=== PATIENT | female | born 1970 | race Hispanic/Latino ===

== ENCOUNTER 2016-07-25 08:38 | Day surgery (SDC) | payer OTHER ==
[~2016-07-25 08:38] MED LIST: ALBU1.25 INHALATION; ALBU18HF INH; BECL8.7A6 IH; CITA20TA11 PO; GABA-502 PO; MELO-253 PO; MONT10TA23 PO
[2016-07-25] MEDS ORDERED: Dexamethasone 10 mg/mL Inj ONE (08:39)
[2016-07-25] MEDS ORDERED: Iohexol 240 mg/mL 10 mL Inj ONE (08:39)
[2016-07-25] MEDS ORDERED: Lidocaine PF 2% 10 mL Inj ONE (08:39)
[2016-07-25 08:54] VITALS: BP 129/83; PULSE 71; RESP 18
[2016-07-25] MEDS ORDERED: DULO40CA2 PO (09:04)
[2016-07-25] MEDS ORDERED: LORA5SOL82 PO (09:04)
--- NOTE | 2016-07-25 16:33 | PCM.PROC ---
Procedure Note Date of Service: Jul 25, 2016 Pre Procedure Diagnosis: PROCEDURE: RIGHT L5 transforaminal epidural steroid injection PRE-PROCEDURE DIAGNOSIS: Lumbar radiculopathy POST-PROCEDURE DIAGNOSIS: same INDICATION: 45-year-old patient referred for bilateral L5 transforaminal epidural steroid injection. PERFORMED BY: Lionel Alexander MD DESCRIPTION OF PROCEDURE: Patient was met in the holding area. Consent was signed, site was confirmed and all questions were answered. They were the taken to the procedure suite and placed prone on the procedure table.The appropriate time out in the OR was performed confirming the patient's name, date of , planned procedure, and presence of the appropriate instrumentation. They were prepped and draped in sterile fashion. The image intensifier was manipulated to minimize double shadows of the vertebral endplates above the neural foramen to be addressed. The image intensifier was rotated 30 ipsilaterally for Te dog appearance. A 25- gauge 5-inch Quincke needle was advanced towards the target area using tunnel view. The image intensifier was then changed to the lateral view and the needle was advanced towards the "safe triangle". Proper positioning was confirmed in the AP view so the tip of the needle ended at the most inferolateral aspect of the superior pedicle. Proper positioning was confirmed with injection of radiopaque contrast dye which showed delineation of the nerve root as well as epidural spread. The contrast was then injected under live fluoroscopy to rule out inadvertent vascular uptake. 1 cc of 2% Lidocaine was injected slowly. After 1 minute the patient was found to be able to move the legs appropriately with no signs or symptoms of vascular uptake of the lidocaine 10 mg dexamethasone was injected followed by another 1/2 cc of 2% Lidocaine . ANESTHESIA: Local. EBL: None. No Blood Products Used COMPLICATIONS: None SPECIMENS: None POST-PROCEDURE DISPOSITION: Patient was returned to the holding area in stable condition. They were discharged home when all discharge criteria were met. Evaluation/Physical Exam before discharge revealed: Pre-procedure pain: 5/10. Post-procedure pain: 1/10 (patient noted an increase in her back pain after the injection, most likely from lying on her stomach) DISCHARGE MEDICATIONS: (none, unless otherwise noted) FOLLOW UP: Keep appointment for LEFT L5 transforaminal epidural steroid injection Lionel Alexander MD .ED: Y: Patient given care and follow up instructions Lionel Alexander MD Jul 25, 2016 16:33
[2016-08-07] MEDS ORDERED: CITA20TA11 PO (14:49)
== END 2016-07-25 23:59 | disposition home or self-care (01) ==
LOC: END 08:38
PROVIDERS: ATTEND Anesthesiology Pain Medicine
DX: M54.16 Radiculopathy, lumbar region (principal); R73.03 Prediabetes; J30.2 Other seasonal allergic rhinitis; F41.9 Anxiety disorder, unspecified; F32.9 Major depressive disorder, single episode, unspecified
CPT/HCPCS: 64483; J1100

== ENCOUNTER 2016-07-25 19:46 | Emergency (ER) | payer OTHER ==
[~2016-07-25] VITALS: Ht 152.4 cm; Wt 90.9 kg
[~2016-07-25 19:46] MED LIST changes: +DULO40CA2 PO; +LORA5SOL82 PO
[2016-07-25 19:50] VITALS: BP 121/79; PULSE 101; RESP 18; O2SAT 97
[2016-07-25] MEDS ORDERED: 0.9% Sodium Chloride 1,000 ML IV ONE (20:08)
--- NOTE | 2016-07-25 20:12 | ED.REPORT ---
HPI-General Illness Date of Service Jul 25, 2016 ED Provider: Dr. Aaron Arellano MD A 45 year old female with a history of asthma presents to the ED complaining of weakness that began just prior to arrival. Patient was sent from Urgent Care for elevated blood glucose levels, she arrived with a glucose of 335. She also reports experiencing diaphoresis, chills, shaking, headache, mild abdominal pain and inguinal pain. Patient received a right L5 epidural steroid injection this afternoon and is currently experiencing back pain and lower extremity pain. She denies any dysuria. Nursing Notes Chief Complaint: General Complaint Nursing Notes Reviewed: Yes Allergies: Coded Allergies: hydrocodone (Verified Allergy, Severe, FACIAL SWELLING, 09/10/15) oxycodone (Verified Allergy, Severe, LOWERED BLOOD PRESSURE/NAUSEA VOMITING, 09/20/15) amoxicillin (Verified Allergy, Unknown, UNKNOWN, 09/10/15) clavulanic acid (Verified Allergy, Unknown, UNKNOWN, 09/10/15) magnesium (Verified Allergy, Unknown, 07/24/16) naproxen (Verified Adverse Reaction, Severe, DIZZINESS, 09/10/15) omeprazole (Verified Adverse Reaction, Severe, HEADACHE, 09/10/15) Scheduled Duloxetine HCl (Duloxetine HCl) 40 Mg Capsule.dr 40 MG PO DAILY Gabapentin (Gabapentin) 300 Mg Capsule 300 MG PO TID Meloxicam (Meloxicam) 15 Mg Tablet 15 MG PO DAILY Montelukast (Montelukast) 10 Mg Tablet 10 MG PO HS Scheduled PRN Albuterol Neb Soln (Albuterol Neb Soln) 1.25 Mg/3 Ml Vial.neb 1.25 MG INHALATION Q4H PRN PRN For Wheezing Albuterol Sulfate (Ventolin HFA Inhaler) 200 Puff/18 Gm Inhaler 1 PUFF INH Q4 PRN PRN For Wheezing Loratadine (Loratadine) 5 Mg/5 Ml (5 Ml) Solution 5 MG PO PRN prn General Time Seen by MD: 20:11 Chief Complaint Weakness Hx Obtained From: Patient Arrived By: Walk-in Sudden in Onset?: No Onset Occurred: Just prior to arrival Symptom Duration: Since onset Location: : Head Quality: Aching Radiation: : Does not radiate Severity: Current: Mild Severity: Maximum: Mild Associated with: Reports: Abdominal pain, Diaphoresis, Weakness Additional Notes: Shaking Chills Inguinal Pain Back Pain Pertinent Negative: Pt denies other symptoms Recent Healthcare: No recent doctor visit, Recent hospitalization Past Medical History Past Medical History Notes: PCP: Clarice Ramirez MD Past Medical History Reports: Asthma, Denies: Diabetes mellitus Past Surgical History 1. Right L5 transforaminal epidural steroid injection 2. Right shoulder arthroscopy with rotator cuff repair. Smoking History Never Smoker Social History Other Social History: Good social support, Local resident Ambulatory Status Independent Review of Systems Full Review of Systems Constitutional: Reports: Chills, Denies: Fever Respiratory: Denies: Shortness of breath Cardiovascular: Denies: Chest pain GI: Reports: Abdominal pain, Denies: Nausea, Vomiting Female: Denies: Dysuria Musculoskeletal: Reports: Back pain, Extremity pain (Lower extremity pain) Neurologic: Reports: Headache, Shaking, Weakness, Denies: Change LOC Complete sys rev & neg: except as marked. Physical Exam Vital Signs Vital Signs Date Time Temp Pulse Resp B/P Pulse Ox O2 Delivery O2 Flow Rate FiO2 07/25/16 23:38 36.6 80 16 112/74 98 Room Air 07/25/16 21:28 82 16 118/75 97 Room Air 07/25/16 19:50 36.1 101 18 121/79 97 Room Air Initial VS: Reviewed Neck: Supple, Non-tender, Full range of motion Skin: Warm, Dry, No cyanosis Neurologic: Alert, Oriented, Nonfocal Psychiatric: Mood/affect normal, Behavior normal, Normal thought content General/Constitutional: Awake, Alert Head / Eyes: Atraumatic, Normocephalic Respiratory / Chest: Atraumatic, Breath sounds NL, Breath sounds = bilat Cardiovascular: Heart rate NL, Regular rhythm, Heart sounds NL, No gallop, No murmurs, No rubs Abdomen: Atraumatic, Soft, Non-tender Back: Atraumatic, Inspection NL BACK: Injection site normal Upper Extremities Upper Extremity / MS: Atraumatic, Neurologic intact, Vascular intact Lower Extremity / Pelvis / MS: Atraumatic, Neurologic intact, Vascular intact Interpretation & Diagnostics Lab Results Interpretation Result Diagram: 07/25/16201407/25/16 2015 Test 07/25/16 20:15 07/25/16 20:36 White Blood Count 9.2th/mm3 (3.8-10.1) Red Blood Count 4.67mil/mm3 (3.90-5.20) Hemoglobin 14.6g/dL (12.0-15.6) Hematocrit 41.2% (35.0-46.0) Mean Corpuscular Volume 88.2fL (81-100) Mean Corpuscular Hemoglobin 31.3pg (27.0-35.0) Mean Corpuscular Hemoglobin Concent 35.4% (32.0-37.0) Red Cell Distribution Width 12.6% (12.3-15.4) Platelet Count 309bil/L (150-400) Neutrophils (%) (Auto) 87.7% (40-74) Lymphocytes (%) (Auto) 9.5% (14-46) Monocytes (%) (Auto) 2.5% (4-12) Eosinophils (%) (Auto) 0% (0-5) Basophils (%) (Auto) 0.1% (0-3) Sodium Level 137mEq/L (134-144) Potassium Level 3.6mEq/L (3.5-5.2) Chloride Level 101mEq/L (97-108) Carbon Dioxide Level 20mmol/L (18-29) Blood Urea Nitrogen 11mg/dL (6-24) Creatinine 0.71mg/dL (0.57-1.00) Estimat Glomerular Filtration Rate 129mL/min (>59) Glucose Level 163mg/dL (60-99) Calcium Level 9.3mg/dL (8.5-10.1) Magnesium Level 1.9mg/dL (1.6-2.6) Total Bilirubin 0.2mg/dL (0.0-1.2) Aspartate Amino Transf (AST/SGOT) 22U/L (0-50) Alanine Aminotransferase (ALT/SGPT) 21U/L (0-32) Alkaline Phosphatase 84U/L (25-150) Total Protein 7.9g/dL (6.4-8.4) Albumin 4.3g/dL (3.4-5.0) Hold Rico Top Tube Received (Received) Urine Color Straw (YELLOW) Urine Appearance Clear (CLEAR,HAZY) Urine pH 6.0 (5.0-8.0) Urine Specific [place] 1.002 (1.003-1.035) Urine Protein Negativemg/dL (NEG,TRACE) Urine Glucose (UA) Negativemg/dL (NEGATIVE) Urine Ketones Negativemg/dL (NEGATIVE) Urine Occult Blood Negative (NEGATIVE) Urine Nitrite Negative (NEGATIVE) Urine Bilirubin Negative (NEGATIVE) Urine Urobilinogen Normalmg/dL (NORMAL) Urine Leukocyte Esterase Negative (NEGATIVE) Urine RBC 0-2/hpf (0-2) Urine WBC 0-5/hpf (0-5) Urine Epithelial Cells Few/hpf (NONE-MOD) Urine Crystals None seen (NONE SEEN) Urine Bacteria None/hpf (NONE-FEW) Urine Hyaline Casts None/lpf (NONE) Urine Granular Casts None seen (NONE SEEN) Urine Waxy Casts None seen (NONE SEEN) Urine Red Blood Cell Casts None seen (NONE SEEN) Urine White Blood Cell Casts None seen (NONE SEEN) Urine Mucus None seen (None Seen) Urine Trichomonas None seen (NONE SEEN) Urine Yeast None (NONE SEEN) Urine Culture Reflexed Not indicated Lab Results Interpretation: Urine Dip SP [place] 1.005 pH 6 Negative: - Leukocytes - Nitrites - Protein - Glucose - Ketones - Urobilinogen - Bilirubin Trace blood Re-Eval/Medical Decision Time of Eval: 23:20 Patient Status: Condition improved Re-Evaluation/Progress Note: Patient is rechecked. She is informed of her lab results and diagnosis. All questions are addressed. She understands and agrees with the treatment plan to discharge. Counseled Regarding: Diagnosis, Lab results, Need for follow-up, When/why to return to ED Discharge & Departure Primary Impression: Hyperglycemia Disposition: Home Discharge Condition All VS Reviewed: Yes Condition: Stable Additional Instructions: Emergency department today we evaluated elevated blood sugar greater than 300 at home. This occurred in the context of a recent epidural steroid injection. There is no fever vital signs are normal exam and labs are otherwise reassuring. Glucose is down into a reasonable range less than 200. We recommend resting tonight continuing previous home medications. Follow-up with Dr. Rogel as planned and discussed this reaction with him prior to your next epidural steroid. Return emergency Department for fevers chest pain or difficulty breathing. Referrals: Clarice Ramirez DO (PCP) Lionel Alexander MD Scribe Attestation Portions of this note were transcribed by Simón Cook. I, Dr. Arellano personally performed the history, physical exam and medical decision-making; I reviewed and confirmed the accuracy of the information in the transcribed note. Signed by: Jesse Cardenas, 07/25/16 [id number]. copies to: Clarice Ramirez Donald L MD Jul 25, 2016 20:12 SIMÓN COOK Jul 25, 2016 22:19
[2016-07-25 20:38] LABS: BASOPHILS % (AUTO) 0.1 % (0-3); EOSINOPHILS % (AUTO) 0 % (0-5); MONOCYTES % (AUTO) 2.5 % (4-12); Mean Corpuscular Hemoglobin 31.3 pg (27.0-35.0); Mean Corpuscular Volume 88.2 fL (81-100); NEUTROPHILS % (AUTO) 87.7 % (40-74); Platelet Count 309 bil/L (150-400)
[2016-07-25 21:02] LABS: Magnesium 1.9 mg/dL (1.6-2.6)
[2016-07-25 21:28] VITALS: BP 118/75; PULSE 82; RESP 16; O2SAT 97
[2016-07-25 22:44] LABS: APPEARANCE,URINE CLEAR (CLEAR,HAZY); COLOR,URINE STRAW (YELLOW); OCCULT BLOOD,URINE NEGATIVE (NEGATIVE); UROBILINOGEN,URINE NORMAL (NORMAL)
[2016-07-25 23:38] VITALS: BP 112/74; PULSE 80; RESP 16; O2SAT 98
[2016-08-07] MEDS ORDERED: CITA20TA11 PO (14:49)
== END 2016-07-25 23:40 | disposition home or self-care (01) ==
LOC: SED 19:46
DX: R73.9 Hyperglycemia, unspecified (principal); R61 Generalized hyperhidrosis; R68.83 Chills (without fever); R25.1 Tremor, unspecified; R10.30 Lower abdominal pain, unspecified; R51 Headache; J45.909 Unspecified asthma, uncomplicated; Z88.1 Allergy status to other antibiotic agents; Z88.5 Allergy status to narcotic agent; Z88.8 Allergy status to other drugs, medicaments and biological substances
CPT/HCPCS: 36415; 80053; 81000; 81025; 82948; 83735; 85025; 96360; 96361; 99284; J7030

== ENCOUNTER 2016-08-08 08:45 | Day surgery (SDC) | payer OTHER ==
[~2016-08-08] VITALS: Ht 154.9 cm; Wt 92.1 kg
[~2016-08-08 08:45] MED LIST changes: -ALBU1.25 INHALATION; -BECL8.7A6 IH; -DULO40CA2 PO; -LORA5SOL82 PO
[2016-08-08] MEDS ORDERED: Lidocaine PF 2% 10 mL Inj ONE (08:46)
[2016-08-08] MEDS ORDERED: Iohexol 240 mg/mL 10 mL Inj ONE (08:46)
[2016-08-08] MEDS ORDERED: Dexamethasone 10 mg/mL Inj ONE (08:46)
[2016-08-08 09:17] VITALS: BP 117/77; PULSE 84; RESP 14; O2SAT 98
[2016-08-08 10:11] VITALS: BP 137/87; PULSE 68; O2SAT 98
--- NOTE | 2016-08-08 16:31 | PCM.PROC ---
Procedure Note Date of Service: Aug 08, 2016 Pre Procedure Diagnosis: PROCEDURE: LEFT L5 transforaminal epidural steroid injection PRE-PROCEDURE DIAGNOSIS: Lumbar radiculopathy POST-PROCEDURE DIAGNOSIS: same INDICATION: 45-year-old female referred for LEFT L5 transforaminal epidural steroid injection for lumbar radiculopathy PERFORMED BY: Lionel Alexander MD DESCRIPTION OF PROCEDURE: Patient was met in the holding area. Consent was signed, site was confirmed and all questions were answered. was taken to the procedure suite and placed prone on the procedure table. The image intensifier was manipulated to minimize double shadows of the vertebral endplates above the neural foramen to be addressed. The image intensifier was rotated 30 ipsilaterally for Te dog appearance. A 25- gauge 5-inch Quincke needle was advanced towards the target area using tunnel view. The image intensifier was then changed to the lateral view and the needle was advanced towards the "safe triangle". Proper positioning was confirmed in the AP view so the tip of the needle ended at the most inferolateral aspect of the superior pedicle. Proper positioning was confirmed with injection of radiopaque contrast dye which showed delineation of the nerve root as well as epidural spread. The contrast was then injected under live fluoroscopy to rule out inadvertent vascular uptake. 1 cc of 2% Lidocaine was injected slowly. After 1 minute the patient was found to be able to move the legs appropriatelywith no signs or symptoms of vascular uptake of the lidocaine 10 mg dexamethasone was injected followed by another 1/2 cc of 2% Lidocaine . ANESTHESIA: Local EBL: None. No Blood Products Used COMPLICATIONS: None SPECIMENS: None POST-PROCEDURE DISPOSITION: Patient was returned to the holding area in stable condition. They were discharged home when all discharge criteria were met. Evaluation/Physical Exam before discharge revealed: 10/29-07/01 DISCHARGE MEDICATIONS: (none, unless otherwise noted) FOLLOW UP: Followup with Zhen Aaron to-4 weeks Discussed controlling blood sugars Lionel Alexander MD .ED: Y: Patient given care and follow up instructions Lionel Alexander MD Aug 08, 2016 16:31
== END 2016-08-08 23:59 | disposition home or self-care (01) ==
LOC: END 08:45
PROVIDERS: ATTEND Anesthesiology Pain Medicine
DX: M54.16 Radiculopathy, lumbar region (principal)
CPT/HCPCS: 64483; J1100

== ENCOUNTER 2016-11-16 01:12 | Emergency (ER) | payer OTHER ==
[~2016-11-16] VITALS: Ht 154.9 cm; Wt 90.9 kg
[~2016-11-16 01:12] MED LIST changes: -CITA20TA11 PO; -MONT10TA23 PO
[2016-11-16 01:16] VITALS: BP 127/90; PULSE 67; RESP 16; O2SAT 99
--- NOTE | 2016-11-16 02:57 | ED.REPORT ---
HPI-NVD Date of Service November 16, 2016 ED Provider: Maikol Jack MD Pt is a 46 year old female with a hx of fibromyalgia presenting to the ED complaining of diarrhea onset 1 month ago. Associated symptoms include malaise, fatigue, palpitations, shaking, weakness, diaphoresis, and chills. Pt reports that she is lactose intolerant so she attributed the diarrhea to this, but then later thought it may be due to her medications. Nursing Notes Stated Complaint: MAYBE BLOOD IN STOOL Chief Complaint: General Complaint Nursing Notes Reviewed: Yes Allergies: Coded Allergies: hydrocodone (Verified Allergy, Severe, FACIAL SWELLING, 08/08/16) oxycodone (Verified Allergy, Severe, LOWERED BLOOD PRESSURE/NAUSEA VOMITING, 08/08/16) amoxicillin (Verified Allergy, Unknown, UNKNOWN, 08/08/16) clavulanic acid (Verified Allergy, Unknown, UNKNOWN, 08/08/16) magnesium (Verified Allergy, Unknown, 08/08/16) naproxen (Verified Adverse Reaction, Severe, DIZZINESS, 08/08/16) omeprazole (Verified Adverse Reaction, Severe, HEADACHE, 08/08/16) Scheduled Gabapentin (Gabapentin) 300 Mg Capsule 300 MG PO TID Meloxicam (Meloxicam) 15 Mg Tablet 15 MG PO DAILY Scheduled PRN Albuterol Sulfate (Ventolin HFA Inhaler) 200 Puff/18 Gm Inhaler 1 PUFF INH Q4 PRN PRN For Wheezing General Time Seen by MD: 02:55 Chief Complaint Diarrhea Hx Obtained From: Patient Arrived By: Walk-in Onset Occurred: More than a week ago... (1 month) Symptom Duration: Since onset Diarrhea: Diarrhea > 10 episodes Severity: Current: No pain currently Severity: Maximum: No pain Associated with: Reports: Shaking chills Recent Healthcare: No recent doctor visit, No recent hospitalization Similar Sx Previous: No Past Medical History Past Medical History Notes: PCP: Clarice Ramirez MD Past Medical History Fibromyalgia Migraines Reports: Asthma Past Surgical History 1. Right L5 transforaminal epidural steroid injection 2. Right shoulder arthroscopy with rotator cuff repair. Family History Mother has hx of low blood sugar Smoking History Never Smoker Social History Other Social History: Good social support, Local resident Ambulatory Status Independent Review of Systems Constitutional: Reports: Chills, Fatigue, Malaise GI: Reports: Diarrhea Skin: Reports Diaphoresis Neurologic: Reports: Shaking Complete sys rev & neg: except as marked. Cardiovascular: Reports: Palpitations Physical Exam Initial Vital Signs Vital Signs (First) Date Time Temp Pulse Resp B/P Pulse Ox O2 Delivery O2 Flow Rate FiO2 11/16/16 01:16 36.6 67 16 127/90 99 Room Air Initial VS: Reviewed, Vital signs normal Head / Eyes: Atraumatic, Normocephalic, PERRL ENT: Mucous membranes moist, Conjunctiva normal, No scleral icterus Neck: Supple, Non-tender, Full range of motion Respiratory: No respiratory distress Extremities: Vascular intact, Neuro intact, No swelling, No tenderness Skin: Warm, Dry, No cyanosis Neurologic: Alert, Oriented, Nonfocal Psychiatric: Mood/affect normal, Behavior normal, Normal thought content General/Constitutional: Awake, Alert, Well appearing Abdomen: Soft, Non-tender, No guarding, No rebound, BS normoactive, No distention Interpretation & Diagnostics Interpretation & Diagnostics: Guaiac negative Lab Results Interpretation Result Diagram: 11/16/16 0325 11/16/16 0325 Test 11/16/16 03:25 11/16/16 03:30 11/16/16 03:50 White Blood Count 17.0th/mm3 (3.8-10.1) Red Blood Count 4.38mil/mm3 (3.90-5.20) Hemoglobin 13.7g/dL (12.0-15.6) Hematocrit 40.0% (35.0-46.0) Mean Corpuscular Volume 91.3fL (81-100) Mean Corpuscular Hemoglobin 31.3pg (27.0-35.0) Mean Corpuscular Hemoglobin Concent 34.3% (32.0-37.0) Red Cell Distribution Width 12.9% (12.3-15.4) Platelet Count 342bil/L (150-400) Neutrophils (%) (Auto) 68.0% (40-74) Lymphocytes (%) (Auto) 21.4% (14-46) Monocytes (%) (Auto) 9.4% (4-12) Eosinophils (%) (Auto) 0.6% (0-5) Basophils (%) (Auto) 0.2% (0-3) Prothrombin Time 10.0sec (8.1-12.5) Prothromb Time International Ratio 0.94ratio Sodium Level 139mEq/L (134-144) Potassium Level 4.0mEq/L (3.5-5.2) Chloride Level 102mEq/L (97-108) Carbon Dioxide Level 24mmol/L (18-29) Blood Urea Nitrogen 16mg/dL (6-24) Creatinine 0.73mg/dL (0.57-1.00) Estimat Glomerular Filtration Rate 124mL/min (>59) Glucose Level 125mg/dL (60-99) Calcium Level 9.3mg/dL (8.5-10.1) Magnesium Level 2.0mg/dL (1.6-2.6) Total Bilirubin 0.2mg/dL (0.0-1.2) Aspartate Amino Transf (AST/SGOT) 16U/L (0-50) Alanine Aminotransferase (ALT/SGPT) 19U/L (0-32) Alkaline Phosphatase 107U/L (25-150) Total Protein 7.5g/dL (6.4-8.4) Albumin 4.0g/dL (3.4-5.0) Hold Rico Top Tube Received (Received) Hold Urine Received (Received) Lab Results Interpretation: Elevated white blood count of uncertain etiology Re-Eval/Medical Decision Med Decision/Clinical Course 46-year-old female with multiple complaints are very positive review of systems. Her chief complaint was dark stool that she assumed was blood, but her stool guaiac is negative. She is already in the middle of a workup to include upcoming colonoscopy and stool testing. No further evaluation is needed tonight. Re-Evaluation/Progress #1: Time of Eval: 03:04 Patient Status: Condition improved Re-Evaluation/Progress Note: Further discussed PMHX. Re-Evaluation/Progress #2: Time of Eval: 05:06 Patient Status: Condition improved Re-Evaluation/Progress Note: Discussed plan for discharge. Pt understands and agrees. Counseled Regarding: Diagnosis, Lab results, Need for follow-up, When/why to return to ED Discharge & Departure Impression: Primary Impression: Diarrhea Diarrhea type: unspecified type Qualified Code: R19.7 - Diarrhea, unspecified Disposition: Home Discharge Condition All VS Reviewed: Yes Condition: Improved Patient Instructions: Chronic Diarrhea (ED) Additional Instructions: There is no blood in the stool at the present time. Your lab tests are normal with no evidence of significant blood loss. Continue the workup that started been initiated by your primary doctor. Referrals: Clarice Ramirez DO (PCP) Ginnaibswapna Attestation Portions of this note were transcribed by Estelita Dow. I, Dr. Jack personally performed the history, physical exam and medical decision-making; I reviewed and confirmed the accuracy of the information in the transcribed note. Signed by: Jesse Álvarez, 11/16/2016 at 0601. copies to: Clarice Ramirez Howard L MD November 16, 2016 02:57 ESTELITA DOW November 16, 2016 03:03
[2016-11-16 03:37] LABS: BASOPHILS % (AUTO) 0.2 % (0-3); EOSINOPHILS % (AUTO) 0.6 % (0-5); MONOCYTES % (AUTO) 9.4 % (4-12); Mean Corpuscular Hemoglobin 31.3 pg (27.0-35.0); Mean Corpuscular Volume 91.3 fL (81-100); Platelet Count 342 bil/L (150-400)
[2016-11-16 04:11] LABS: INR 0.94 ratio
[2016-11-16 05:12] VITALS: BP 126/88; PULSE 68; RESP 17; O2SAT 100
[2016-11-16 06:03] VITALS: BP 128/86; PULSE 62; RESP 16; O2SAT 99
== END 2016-11-16 06:00 | disposition home or self-care (01) ==
LOC: SED 01:12
DX: R19.7 Diarrhea, unspecified (principal); R53.81 Other malaise; R53.83 Other fatigue; R00.2 Palpitations; R25.1 Tremor, unspecified; R61 Generalized hyperhidrosis; R68.83 Chills (without fever); J45.909 Unspecified asthma, uncomplicated; M79.7 Fibromyalgia; G43.909 Migraine, unspecified, not intractable, without status migrainosus; Z88.1 Allergy status to other antibiotic agents; Z88.5 Allergy status to narcotic agent; Z88.8 Allergy status to other drugs, medicaments and biological substances